=== PATIENT | male | born 1965 | race Caucasian/White ===

== ENCOUNTER → 2016-12-08 | Day surgery (SDC) | payer OTHER ==
[~2016-12-08] MED LIST: ATORVASTATIN CA10 MG PO; BASAGLAR K100 UNIT/1 SUBQ; COREG12.5 M1; NOVOLOG100 U/ML; PANTOPRAZOLE SO20 MG PO; PRINIVIL20 M1 PO
--- NOTE | ~2016-12-08 | OR ---
Unit #: [id number] #: [id number] Patient: HAYDEE WICK [id number] [address] [place], [place] [address] [id number] MR#: [id number] NAME: HAYDEE WICK ROOM: Date of Procedure: 12/08/2016 Admission Date: 12/08/2016 Surgeon: Abilio Bonds M.D. : 1965 Attending Physician: Abilio Bonds M.D. Primary Care Physician: Sandy Sorto M.D. OPERATIVE REPORT PROCEDURES PERFORMED 1. Esophagogastroduodenoscopy with biopsy. 2. Colonoscopy with snare polypectomy. INDICATIONS FOR PROCEDURE The patient with history of colon polyps, and also with history of Brantley esophagus, undergoing evaluation with upper endoscopy and colonoscopy. MEDICATIONS Monitored anesthesia. POSTOPERATIVE FINDINGS 1. Small segment Brantley esophagus, biopsies taken. 2. Chronic appearing gastritis, biopsies taken. 3. Multiple large gastric polyps were seen, they were biopsied. 4. Ascending colon polyp, large, removed piecemeal. 5. Transverse colon polyps x2, small, snared, and sent for histopathology. 6. Internal hemorrhoids. PLAN 1. Follow up on the pathology report. Continue PPI therapy and reflux precautions. 2. Repeat upper endoscopy and colonoscopy in 3 years. DESCRIPTION OF PROCEDURE The patient was explained of the procedure, risks, and benefits along with risks and benefits of anesthesia. He was brought to the endoscopy room. Propofol anesthesia was given. Bite block was placed. The scope was passed down the mouth and esophagus, stomach, duodenum, and distal duodenum. Findings as described. Biopsies taken. Gently, the scope was pulled out. He tolerated this part very well. At this time, he was turned out, repositioned for colonoscopy. Rectal exam was done, which was normal. Polyps have been described above. They were removed with snare polypectomy. I retroflexed in the rectum, internal hemorrhoids were noted. Gently, the scope was pulled out. He tolerated it well. No major complications were seen. Dictated by... Abilio Bonds M.D. Unit #: [id number] #: [id number] Patient: HAYDEE WICK SEVEN/karen TD: 12/22/2016 03:40 JOB #: [id number] OPERATIVE REPORT Page 1 of 1 X Abilio Bonds MD PROCEDURE OPERATIVE NOTE
== END | disposition home or self-care (01) ==
LOC: COPS 13:05
DX: K22.70 Barrett's esophagus without dysplasia (principal); K29.50 Unspecified chronic gastritis without bleeding; K31.7 Polyp of stomach and duodenum; K21.0 Gastro-esophageal reflux disease with esophagitis; D12.3 Benign neoplasm of transverse colon; E11.9 Type 2 diabetes mellitus without complications; I10 Essential (primary) hypertension
CPT/HCPCS: 82947; 88305; 88312; J1610

== ENCOUNTER → 2017-03-14 | Day surgery (SDC) | payer OTHER ==
--- NOTE | ~2017-03-14 | OR ---
Unit #: [id number] #: [id number] Patient: HAYDEE WICK [id number] [address] [place], [place] [address] [id number] MR#: [id number] NAME: HAYDEE WICK ROOM: Date of Procedure: 03/14/2017 Admission Date: 03/14/2017 Surgeon: Abilio Bonds M.D. : 1965 Attending Physician: Abilio Bonds M.D. Primary Care Physician: Sandy Sorto M.D. OPERATIVE REPORT PROCEDURE PERFORMED Colonoscopy with snare polypectomy. INDICATIONS FOR PROCEDURE The patient with history of recent colonoscopy where a large polyp was removed piecemeal here for completion of the polypectomy to remove the remnants. MEDICATIONS Monitored anesthesia. POSTOPERATIVE FINDINGS 1. At least 1 cm remnant polyp seen in the ascending colon. It was snared using hot snare polypectomy. Site looks good now. 2. A 5-mm transverse colon polyp, snared and sent for histopathology. 3. Good prep. 4. Rest of the colon exam was normal. PLAN Follow up on pathology report. Repeat colonoscopy in 3 years. DESCRIPTION OF PROCEDURE The patient was explained of the procedure, risks, and benefits along with risks and benefits of anesthesia. He was brought to the endoscopy room. Propofol anesthesia was given. Rectal exam was done, which was normal. Colonoscope was lubricated, passed up the rectum, advanced under direct vision all the way to the cecum. Cecum was identified by ileocecal valve and appendiceal orifice. Ascending colon shows a large polypoid lesion around the previous polypectomy site, which was snared in a piecemeal fashion and sent for histopathology. Small polyp was seen in the transverse colon, was snared and sent for pathology also. In the rectum, internal hemorrhoid was noted. Gently, the scope was pulled out. He tolerated it well. Dictated by... Araseli Salas/karen TD: 03/16/2017 05:25 Unit #: [id number] #: [id number] Patient: HAYDEE WICK JOB #: [id number] OPERATIVE REPORT Page 1 of 1 X Abilio Bonds MD OPERATIVE NOTE
== END | disposition home or self-care (01) ==
LOC: COPS 06:27
DX: D12.2 Benign neoplasm of ascending colon (principal); D12.3 Benign neoplasm of transverse colon; K21.9 Gastro-esophageal reflux disease without esophagitis; E11.9 Type 2 diabetes mellitus without complications; I10 Essential (primary) hypertension; Z87.891 Personal history of nicotine dependence; Z79.4 Long term (current) use of insulin; Z79.899 Other long term (current) drug therapy; Z98.890 Other specified postprocedural states
CPT/HCPCS: 82947; 88305